=== PATIENT | male | born 1995 | race Caucasian/White ===

== ENCOUNTER 2019-01-22 00:59 | Emergency (ER) | payer MEDICAID ==
[~2019-01-22] VITALS: Ht 175.3 cm; Wt 81.6 kg
[2019-01-22 01:05] VITALS: BP_SYST 153
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
--- NOTE | 2019-01-22 03:29 | NUR ---
Patient to ER bed 4 to gown for evaluation. Side rails up. Report given to [facility].
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
--- NOTE | 2019-01-22 03:35 | NUR ---
Sandy joseph in [facility] - 01/22/19 at 0343 by [email or web address] Pt C/I
--- NOTE | 2019-01-22 03:45 | NUR ---
ER Dr. Haji at bedside examining patient.
[2019-01-22] MEDS ORDERED: MORPHINE 4 MG/ML INJ. SYRINGE IM ONE ×2 (04:00→07:30)
--- NOTE | 2019-01-22 04:05 | NUR ---
Patient transported to radiology, accompanied by rad staff.
--- NOTE | 2019-01-22 04:18 | NUR ---
Pt returned in stable condition, will continue to monitor.
--- NOTE | 2019-01-22 05:20 | NUR ---
Pt is resting in bed, no acute distress at this time
--- NOTE | 2019-01-22 06:18 | NUR ---
# 18 gauge angiocath placed to LT Forearm. Use of asceptic technique. Opsite placed over site. Blood return noted. Blood for lab drawn from site. Flushed with 10 cc of normal saline. No evidence of infiltration noted. Patient tolerated well.
--- NOTE | 2019-01-22 06:39 | NUR ---
Pt is resting quietly in bed, vital signs are stable. Will continue to monitor.
--- NOTE | 2019-01-22 07:15 | NUR ---
Report from [facility]
--- NOTE | 2019-01-22 07:22 | NUR ---
PATIENT SITTING UP IN [place], AWAKE AND ALERT
[2019-01-22 07:55] VITALS: BP_SYST 157
--- NOTE | 2019-01-22 07:55 | NUR ---
Patient to be transferred to [facility] ER. Is being transferred due to higher level of care. Receiving facility has accepting physician and available space. ER physician has signed transfer form. Patient or responsible republican has agreed to transfer and signed form. Patient belongings inventoried and will be sent with patient. Copy of nursing notes, lab reports, EKG, Physicians Orders and X-rays to be sent with patient. Report called to at receiving facility. Receiving physician is Dr. Pittman. ambulance service has been called for transfer. ETA is [id number].
== END 2019-01-22 07:55 | disposition short-term general hospital (02) ==
LOC: SED 00:59
DX: S02.2XXA Fracture of nasal bones, initial encounter for closed fracture (principal); Y04.0XXA Assault by unarmed brawl or fight, initial encounter; Y93.89 Activity, other specified; Y92.513 Shop (commercial) as the place of occurrence of the external cause; Y99.8 Other external cause status
CPT/HCPCS: 70486; 96372; 99285; J2270